=== PATIENT | female | born 1980 | race Caucasian/White ===

== ENCOUNTER 2024-01-31 21:05 | Outpatient (REF) | payer OTHER, BC, SELFPAY ==
[2024-02-06 15:09] LABS: Age Gdln ACOG Testing Note (.); HPV Aptima Negative (Negative); IGP, Aptima HPV, rfx 16/18,45 Note (.)
== END 2024-01-31 21:06 | disposition home or self-care (01) ==
LOC: LAB 21:05
PROVIDERS: PCP Family Medicine; Visit Provider Physician Assistant
DX: Z01.419 Encounter for gynecological examination (general) (routine) without abnormal findings (principal)
CPT/HCPCS: 87624; G0145

== ENCOUNTER 2024-03-25 08:34 | Outpatient (OUT) | payer OTHER, BC, SELFPAY ==
--- NOTE | 2024-03-25 08:39 | MM_ITS ---
Patient Name: ROSANA BOYD MR#: [id number] : 1980 Exam Date: 03/25/2024 Ordering Doctor: DR Sea Gan . RADIOLOGY REPORT PROCEDURE: MM TOMOSYNTHESIS SCREENING BI COMPARISON: MG MAMM SCREEN 3D ALESSANDRA CAD, 01/02/2023. INDICATIONS: Screening Calculator Name NCI Breast Cancer Risk Assessment Tool 5 Year Breast Cancer Risk 0.70% Lifetime Breast Cancer Risk 10.00% Personal Breast Cancer No Personal Ovarian Cancer No Treatments None Family Cancers Uncle-paternal with colon cancer at age 55. LOCATION: [facility] BREAST COMPOSITION: The breasts are heterogeneously dense,which may obscure small masses. FINDINGS: DIAGNOSTIC CATEGORY 1--NEGATIVE. NO CHANGE FROM COMPARISON ASSESSMENT. Scattered benign-appearing lymph nodes are present. RIGHT BREAST: No significant suspicious finding. LEFT BREAST: No significant suspicious finding. RECOMMENDATIONS: ROUTINE MAMMOGRAM AND CLINICAL EVALUATION IN 12 MONTHS. PLEASE NOTE: A NORMAL MAMMOGRAM DOES NOT EXCLUDE THE POSSIBILITY OF BREAST CANCER. A CLINICALLY SUSPICIOUS PALPABLE LUMP SHOULD BE BIOPSIED. Dictated by: Jerson Lopez MD on 03/25/2024 at 09:51 Approved by: Jerson Lopez MD on 03/25/2024 at 09:52
== END 2024-03-25 08:35 | disposition home or self-care (01) ==
LOC: MAMMO 08:35
PROVIDERS: PCP Family Medicine; Visit Provider Obstetrics & Gynecology
DX: Z12.31 Encounter for screening mammogram for malignant neoplasm of breast (principal); Z80.0 Family history of malignant neoplasm of digestive organs
CPT/HCPCS: 77063; 77067

== ENCOUNTER 2025-03-27 08:04 | Outpatient (OUT) | payer OTHER, BC, SELFPAY ==
--- OUTSIDE RECORDS SUMMARY | 2025-03-27 08:09 | XMS_ITS | CCD ---
Author Organization [facility] Care Team Providers Care Applications Instructor Name Role Phone Lois Alexander Unavailable DR NIDIA HOWARD Primary Care Unavailable EDILIA, DR MIKEL Mccullough Consulting Unavailable GRISELDA ., YOSHI Attending Unavailable GRISELDA ., YOSHI Admitting Unavailable GRISELDA ., YOSHI Consulting Unavailable ANITA, DR SINGH Primary Care Unavailable GRISELDA ., YOSHI Admitting Unavailable GRISELDA ., YOSHI Consulting Unavailable GRISELDA Perez, YOSHI Attending Unavailable Marisela Kramer APRN Attending Provider Marisela Kramer Attending Unavailable Marisela Kramer Admitting Unavailable Nidia Howard MD Unavailable Nidia Howard MD Primary Care Provider [phone] Nidia Howard MD Unavailable NIDIA HOWARD Attending Unavailable NATIVIDAD POON Attending Unavailable Marisela Kramer APRN Attending Provider Medications Current Medications Medication Drug Class(es) Dates Sig (Normalized) Sig (Original) atorvastatin 10 mg oral tablet (8 sources) HMG-CoA Reductase Inhibitor Start: 02-01-2024 End: 03-09-2025 take 1 tablet by mouth once daily Atorvastatin 10 mg tablet Active 10 MG PO Daily March 09, 2025 9:32am Start: 02-01-2024 Atorvastatin A ctive MG PO February 01, 2024 12:00am cetirizine hydrochloride 10 mg oral tablet (1 source) Histamine-1 Receptor Antagonist Start: 03-09-2025 take 1 tablet by mouth once daily as needed Cetirizine (Zyrtec) 10 mg tablet Active 10 MG PO Daily as needed March 09, 2025 12:00am cholecalciferol 0.025 mg oral capsule (1 source) Vitamin D Start: 03-09-2025 take 1 capsule by mouth once daily Cholecalciferol (Vitamin D3) 25 mcg (1,000 unit) capsule Active 25 MCG PO Daily March 09, 2025 12:00am fluticasone propionate 0.05 mg/actuat metered dose nasal spray (1 source) Corticosteroid Start: 05-28-2021 take 1 spray(s) nasal route once daily Fluticasone Propionate 50 MCG/ACT 1 spray in each nostril Nasally Once a day for 30 day(s) May, Active phenazopyridine hydrochloride 200 mg delayed release oral tablet (3 sources) Start: 02-13-2025 End: 02-15-2025 take 1 tablet by mouth three times daily as needed for muscle spasms phenazopyridine (Pyridium) 200 MG tablet Indications: Acute cystitis without hematuria Take 1 tablet (200 mg) by mouth 3 (three) times a day as needed for bladder spasms for up to 2 days 6 tablet 02/13/2025 02/15/2025 Active Start: 10-30-2021 take 1 tablet by [facility] every eight hours Pyridium 200 MG 1 tablet after meals Orally Three times a day for 2 day(s) Oct, Active Completed/Discontinued Medications Medication Drug Class(es) Dates Sig (Normalized) Sig (Original) cephalexin 500 mg oral capsule (3 sources) Cephalosporin Antibacterial Start: 12-22-2024 End: 03-09-2025 take 1 capsule by mouth twice daily Cephalexin 500 mg capsule Discontinued 500 MG PO Twice daily 14 7 December 22, 2024 1:00am March 09, 2025 9:32am Start: 10-30-2021 take 1 capsule by [facility] every eight hours Cephalexin 500 MG 1 capsule Orally three times a day for 5 days Oct, Active dextromethorphan hydrobromide 1.5 mg/ml / pyrilamine maleate 1.5 mg/ml oral solution (4 sources) Uncompetitive E-cwkigj-W-aspartate Receptor Antagonist, Sigma-1 Agonist Start: 02-01-2024 End: 05-30-2024 take 1 mL by mouth every eight hours Pyrilamine-Dextromethorphan ([place] Dm) 7.5-7.5 mg/5 mL liquid Discontinued 10 ML PO Every 8 hours 150 5 January 314 12:00am May 30, 2024 4:38pm predniSONE 20 mg oral tablet (7 sources) Start: 05-30-2024 End: 12-22-2024 take 3 tablets by mouth once daily, then take 2 tablets by mouth once daily, then take 1 tablet by mouth once daily Prednisone 20 mg tablet Discontinued 20 MG PO .COMPLEX 24 May 30, 2024 12:00am December 22, 2024 10:43am Take 3 tabs po daily x 4 days, then take 2 tabs po daily x 4 days, then take 1 tab po daily x 4 days. Start: 02-01-2024 End: 05-30-2024 take 1 tablet by mouth twice daily Prednisone 20 mg tablet Discontinued 20 MG PO Twice daily 10 February 01, 2024 12:00am May 30, 2024 4:38pm Problems Active Problems Problem Classification Problem Date Documented Date Episodic/Chronic Allergic reactions (3 sources) Contact dermatitis; Translations: [Unspecified contact dermatitis, unspecified cause] 05-30-2024 Episodic Disorders of lipid metabolism (2 sources) Pure hypercholesterolemia; Translations: [Pure hypercholesterolemia, unspecified] Onset: 05-31-2023 05-31-2023 Chronic Genitourinary symptoms and ill-defined conditions (4 sources) Dysuria; Translations: [Urgency of urination] Onset: 10-30-2021 Resolved: 10-30-2021 Episodic Immunizations and screening for infectious disease (1 source) Encounter for screening for human papillomavirus (HPV); Translations: [ENC SCREENING HUMAN PAPILLOMAVIRUS] Onset: 12-20-2022 Episodic Other congenital anomalies (2 sources) Birthmark; Translations: [Congenital non-neoplastic nevus] Onset: 05-31-2023 05-31-2023 Chronic Other screening for suspected conditions (not mental disorders or infectious disease) (8 sources) Encounter for screening mammogram for malignant neoplasm of breast; Translations: [Encounter for screening for malignant neoplasm of cervix] Onset: 12-19-2022 Episodic Other upper respiratory infections (4 sources) Viral upper respiratory tract infection; Translations: [Acute upper respiratory infection, unspecified] 02-01-2024 Episodic Residual codes; unclassified (1 source) Family history of malignant neoplasm of digestive organs; Translations: [FAM HX MALIG NEOPLASM DIGESTIV ORGN] Onset: 01-05-2023 Episodic Spondylosis; intervertebral disc disorders; other back problems (4 sources) Backache; Translations: [Dorsalgia, unspecified] 12-22-2024 Episodic Superficial injury; contusion (4 sources) Contusion of lower back and pelvis, initial encounter; Translations: [Contusion of left buttock] 12-22-2024 Episodic Urinary tract infections (7 sources) Acute cystitis with hematuria; Translations: [Urinary tract infectious disease] Onset: 10-30-2021 Resolved: 10-30-2021 Episodic Past or Other Problems Problem Classification Problem Date Documented Da te Episodic/Chronic Biliary tract disease (2 sources) Disorder of gallbladder; Translations: [Disease of gallbladder, unspecified] Onset: 05-31-2023 05-31-2023 Episodic Results Test Name Value Interpretation Reference Range Facility No Panel InformationOrdered By: Sonam Moreira on 03-09-2025 Quick Strep (POC) [facility] Urinalysis macro (dipstick) panel (U)on 02-13-2025 Bilirubin, UA 1+ Negative - 4(70) +++ mg/dL [facility] Blood, UA Negative Negative - 50 Lenny/mcL [facility] Clarity, UA Clear [facility] Color, UA Yellow [facility] Glucose, UA Negative Negative - 1999(110) ++++ mg/dL [facility] Interpretation and review of laboratory results Abnormal [facility] Ketones, UA Negative Negative - 160(16) ++++ mg/dL [facility] Leukocytes, UA Moderate Negative - 500+++ Corky/mcL [facility] Nitrite, UA Negative Negative - Positive [facility] pH, UA 6 5 - 9 [facility] Protein, UA Negative Negative - 1999(20) ++++ mg/dL [facility] Spec Grav, UA 1.03 1 - 1.[address] [facility] care Urobilinogen, UA 0.2 0.2 - 12 mg/dL [facility] Urine Cultureon 12-23-2024 Bacteria identified Cx Nom (U) ORGANISM: Proteus mirabilis (O:PROMIR) [place] Count 75,000 Aerobic AZEB Charge ([id number]) ----- SUSCEPTIBILITY ---- ORGANISM: O:PROMIR ANTIBIOTIC INTERPRETATION AZEB Amikacin S <16 Amoxacillin/K Clavulanate S <8 Ampicillin S <8 Ampicillin/Sulbactam S <4 Aztreonam S <4 Cefazolin S <2 Cefepime S <2 Ceftazidime S <1 Ceftazidime/Avibacta m S <4 Ceftolozane/Tazobact am S <2 Ceftriaxone S <1 Cefuroxime S <4 Ciprofloxacin S <0.25 Ertapenem S <0.5 Gentamicin S <2 Levofloxacin S <0.5 Meropenem S <1 Meropenem/Vaborbacta m S <2 Piperacillin/Tazobac zhang S <8 Tobramycin S <2 Trimethoprim/Sulfame thoxazole S <0.5 S = SUSCEPTIBLE I = INTERMEDIATE R = RESISTANT BLANK = DATA NOT AVAILABLE, OR DRUG NOT ADVISABLE OR TESTED R* = RESISTANCE DUE TO EXTENDED SPECTRUM BETA-LACTAMASES ESBL = EXTENDED SPECTRUM BETA-LACTAMASE TFG = THYMIDINE-DEPENDENT STRAIN GUANAKITO = BETA-LACTAMASE POSITIVE IB = INDUCIBLE BETA-LACTAMASE. APPEARS IN PLACE OF 'S' WITH SPECIES KNOWN TO POSSESS INDUCIBLE BETA-LACTAMASES. POTENTIALLY THEY MAY BECOME RESISTANT TO ALL B-LACTAM DRUGS. PERFORMED BY: [place] [id number] PATHOLOGIST BROADCAST DIRECTOR OPERATIONS STEVE KHAN M.D. Normal [facility] Comment on above: Performed By: #### C UU #### [facility] [address] [place] [address] Urine cultureOrdered By: Emili Kramer on 12-23-2024 Bacteria identified Cx Nom (U) Abnormal [facility] - Chemistry and C hemistry - challengeon 12-22-2024 Bilirubin Ql (U) Negative [facility] Glucose (U) [Mass/Vol] Negative [facility] Ketones Ql (U) Negative [facility] pH (U) 8.0 [pH] [facility] Specific gravity (U) [Rel density] 1.015 [facility] - Specimen inform ationon 12-22-2024 Appearance (U) clear [facility] Color (U) LTpink [facility] - Urinalysison Leukocyte esterase Test strip Ql (U) Small [facility] Nitrite Ql (U) Negative [facility] Protein Ql (U) Negative [facility] No Panel Informationon 12-22 Urine Occult Blood Large [facility] Urine Urobilinogen 0.2E.U [facility] MG MAMM SCREEN 3D ALESSANDRA CADon 01-02-2023 MG MAMM SCREEN 3D ALESSANDRA CAD Patient: DARWIN BOYD Exam Date: 01/02/2023 : 1980 Gender:F Ordering : BRENDA VILLALOBOS . Admission #: [id number] Family : Order #: [id number] CLICK HERE TO VIEW EXAM RADIOLOGY REPORT PROCEDURE: MAMMOGRAM SCREENING 3D BILATERAL CAD COMPARISON: None. INDICATIONS: Screening for malignant neoplasm of breast Calculator Name NCI Breast Cancer Risk Assessment Tool 5 Year Breast Cancer Risk 0.60% Lifetime Breast Cancer Risk 10.20% Personal Breast Cancer No Personal Ovarian Cancer No Treatments None Family Cancers Uncle-paternal with colon cancer at age 55. LOCATION: [facility] BREAST COMPOSITION: Heterogeneously dense,which may obscure small masses. FINDINGS: DIAGNOSTIC CATEGORY 1--NEGATIVE. RIGHT BREAST: No significant suspicious finding. LEFT BREAST: No significant suspicious finding. RECOMMENDATIONS: ROUTINE MAMMOGRAM AND CLINICAL EVALUATION IN 12 MONTHS. PLEASE NOTE: A NORMAL MAMMOGRAM DOES NOT EXCLUDE THE POSSIBILITY OF BREAST CANCER. A CLINICALLY SUSPICIOUS PALPABLE LUMP SHOULD BE BIOPSIED. Dictated by: Mikel Santiago M.D. on 01/04/2023 at 12:01 Approved by: Mikel Santiago M.D. on 01/04/2023 at 13:10 Normal [facility] PAP ACOG PANEL 2: 30 to 65on 12-26-2022 . . Normal [facility] Comment on above: Result Comment: Perf ormed at: WB Performed By: #### [id number] #### [facility] [address] [address] [address] Prince Oquendo Age Gdln ACOG Testing 30-65 Normal [facility] Comment on above: Performed By: #### [id number] #### [facility] [address] [place] [address] Dr. Prince Oquendo DIAGNOSIS: Comment Normal [facility] Comment on above: Result Comment: NEGA TIVE FOR INTRAEPITHELIAL LESION OR MALIGNANCY. Performed at: WB Performed By: #### [id number] #### [facility] [address] [place] [address] Dr. Prince Oquendo HPV Aptima Negative Normal Negative [facility] Comment on above: Result Comment: This nucleic acid amplification test detects fourteen high-risk HPV types (16,18,31,33,35,39,45,51,52,56,58,59,66,68) without differentiation. Performed at: =G Performed By: #### [id number] #### [facility] [address] [place] [address] Dr. Prince Oquendo HPV Genotype Reflex Comment Normal [facility] Comment on above: Result Comment: Crit eria not met, HPV Genotype not performed. Performed at: WB Performed By: #### [id number] #### [facility] [address] [place] [address] Dr. Prince Oquendo Methodology: Comment Normal [facility] Comment on above: Result Comment: This liquid based ThinPrep(R) pap test was screened with the use of an image guided system. Performed at: WB Performed By: #### [id number] #### [facility] [address] [place] [address] Dr. Prince Oquendo Note: Comment Normal [facility] Comment on above: Result Comment: The Pap smear is a screening test designed to aid in the detection of premalignant and malignant conditions of the uterine cervix. It is not a diagnostic procedure and should not be used as the sole means of detecting cervical cancer. Both false-positive and false-negative reports do occur. . Performed at: WB Performed By: #### [id number] #### [facility] [address] [place] [address] Dr. Prince Oquendo Performed by: Comment Normal [facility] Comment on above: Result Comment: Truman Núñez, Blown Film Extrusion Operator (ASCP) Performed at: WB Performed By: #### [id number] #### [facility] [address] [address] [address] Prince Oquendo Specimen adequacy: Comment Normal [facility] Comment on above: Result Comment: Sati sfactory for evaluation. Endocervical and/or squamous metaplastic cells (endocervical component) are present. Performed at: WB Performed By: #### [id number] #### [facility] [address] [address] [address] Prince Oquendo Urinalysis - AUTOMATEDon Appearance (U) cloudy [employer] Other Bilirubin Ql (U) Negative [employer] Other Color (U) pink [facility] Other Glucose Ql (U) Negative [employer] Other Hemoglobin Ql (U) large [employer] Other Ketones Ql (U) Negative [employer] Other Leukocyte esterase Test strip Ql (U) moderate [employer] Other Nitrite Ql (U) Negative [employer] Other pH (U) 6.0 [pH] [employer] Other Protein Ql (U) trace [employer] Other Specific gravity (U) [Rel density] 1.010 [employer] Other Urobilinogen (U) [Mass/Vol] 0.2 mg/dL [employer] Other Urinalysis - AUTOMATED No rt [employer] Other Vital Signs Date Time Vital Sign Value Performing Clinician Facility 03-09-2025 09:29-0400 Body height 165.1 cm Marisela Kramer APRN Work Phone: [facility] 03-09-2025 09:29-0400 Body mass index (BMI) [Ratio] 23.4 kg/m2 Marisela Nia [employer] Work Phone: [facility] 03-09-2025 09:29-0400 Body temperature 98.6 [degF] Marisela Nia [employer] Work Phone: [facility] 03-09-2025 09:29-0400 Body weight 63.95 kg Marisela Nia [employer] Work Phone: [facility] 03-09-2025 09:29-0400 Diastolic blood pressure 79 mm[Hg] Marisela Nia [employer] Work Phone: [facility] 03-09-2025 09:29-0400 Heart rate 67 /min Marisela Nia [employer] Work Phone: [facility] 03-09-2025 09:29-0400 Respiratory rate 16 /min Marisela Nia [employer] Work Phone: [facility] 03-09-2025 09:29-0400 SaO2% (BldA) [Mass fraction] 98 % Marisela Nia [employer] Work Phone: [facility] 03-09-2025 09:29-0400 Systolic blood pressure 114 mm[Hg] Marisela Nia [employer] Work Phone: [facility] 02-13-2025 14:08-0400 Body height 163.8 cm Natividad Hemmer PA Work Phone: [facility] 02-13-2025 14:08-0400 Body mass index (BMI) [Ratio] 24.81 kg/m2 Natividad Hemmer PA Work Phone: [facility] 02-13-2025 14:08-0400 Body temperature 98.8 [degF] Natividad Hemmer PA Work Phone: [facility] 02-13-2025 14:08-0400 Body weight 66.59 kg Natividad Hemmer PA Work Phone: [facility] 02-13-2025 14:08-0400 Diastolic blood pressure 80 mm[Hg] Natividad Hemmer PA Work Phone: [facility] 02-13-2025 14:08-0400 Heart rate 78 /min Natividad Hemmer PA Work Phone: [facility] 02-13-2025 14:08-0400 Respiratory rate 16 /min Natividad Hemmer PA Work Phone: [facility] 02-13-2025 14:08-0400 SaO2% (BldA) [Mass fraction] 98 % Natividad Hemmer PA Work Phone: [facility] 02-13-2025 14:08-0400 Systolic blood pressure 122 mm[Hg] Natividad Hemmer PA Work Phone: [facility] 12-22-2024 09:41-0500 Body height 165.1 cm [facility] 12-22-2024 09:41-0500 Body mass index (BMI) [Ratio] 24.5 kg/m2 [facility] 12-22-2024 09:41-0500 Body temperature 98.1 [degF] [facility] 12-22-2024 09:41-0500 Body weight 66.73 kg [facility] 12-22-2024 09:41-0500 Diastolic blood pressure 79 mm[Hg] [facility] 12-22-2024 09:41-0500 Heart rate 63 /min [facility] 12-22-2024 09:41-0500 SaO2% (BldA) [Mass fraction] 99 % [facility] 12-22-2024 09:41-0500 Systolic blood pressure 109 mm[Hg] [facility] 05-30-2024 16:42-0400 Body height 165.1 cm [facility] 05-30-2024 16:42-0400 Body mass index (BMI) [Ratio] 23.8 kg/m2 [facility] 05-30-2024 16:42-0400 Body temperature 98.3 [degF] [facility] 05-30-2024 16:42-0400 Body weight 64.94 kg [facility] 05-30-2024 16:42-0400 Heart rate 64 /min [facility] 05-30-2024 16:42-0400 Respiratory rate 18 /min [facility] 05-30-2024 16:42-0400 SaO2% (BldA) [Mass fraction] 98 % [facility] 02-01-2024 16:56-0400 Body height 165.1 cm [facility] 02-01-2024 16:56-0400 Body mass index (BMI) [Ratio] 23.3 kg/m2 [facility] 02-01-2024 16:56-0400 Body temperature 97.9 [degF] [facility] 02-01-2024 16:56-0400 Body weight 63.5 kg [facility] 02-01-2024 16:56-0400 Heart rate 73 /min [facility] 02-01-2024 16:56-0400 Respiratory rate 16 /min [facility] 02-01-2024 16:56-0400 SaO2% (BldA) [Mass fraction] 97 % [facility] 11-18-2023 09:10-0500 Body height 165.1 cm [facility] 11-18-2023 09:10-0500 Body weight 63.14 kg [facility] 11-18-2023 09:10-0500 Diastolic blood pressure 83 mm[Hg] [facility] 11-18-2023 09:10-0500 Systolic blood pressure 122 mm[Hg] [facility] 10-30-2021 13:30-0500 Body height 165.1 cm Lois Alexander Other [employer] Other 10-30-2021 13:30-0500 Body mass index (BMI) [Ratio] 22.3 kg/m2 Lois Alexander Other [employer] Other 10-30-2021 13:30-0500 Body temperature 97.4 [degF] Lois Alexander Other [employer] Other 10-30-2021 13:30-0500 Body weight 60.78 kg Lois Alexander Other [employer] Other 10-30-2021 13:30-0500 Diastolic blood pressure 88 mm[Hg] Lois Alexander Other [employer] Other 10-30-2021 13:30-0500 Respiratory rate 18 /min Lois Alexander Other [employer] Other 10-30-2021 13:30-0500 SaO2% (BldA) [Mass fraction] 100 % Lois Alexander Other [employer] Other 10-30-2021 13:30-0500 Systolic blood pressure 128 mm[Hg] Lois Alexander Other [employer] Other Encounters Encounter Date Encounter Type Care Provider Facility Start: 03-09-2025 End: 03-09-2025 ambulatory Marisela Kramer APRN Work Phone: [facility] Work Phone: Start: 03-09-2025 End: 03-09-2025 Patient encounter procedure Mariselaeliz Kramer [employer] Work Phone: [facility] [place] Work Phone: Start: 02-13-2025 End: 02-13-2025 Office outpatient visit 25 minutes Natividad GUTIERREZ Work Phone: [facility] Comment on above: Acute cystitis witho ut hematuria (Primary Dx); Urine frequency Start: 02-13-2025 End: 02-13-2025 ambulatory NATIVIDAD POON Not Available Start: 12-23-2024 End: 12-23-2024 ambulatory Marisela Kramer [facility] Work Phone: Start: 12-23-2024 End: 12-23-2024 Departed Referred Marisela Kramer [employer] Work Phone: [facility] [place] Work Phone: Start: 12-22-2024 End: 12-22-2024 ambulatory [facility] Work Phone: Start: 12-22-2024 End: 12-22-2024 Patient encounter procedure [facility] [place] Work Phone: Start: 06-13-2024 Assay of hemosiderin , annabelle Henson Hemmer PA Work Phone: [facility] Start: 06-13-2024 End: 06-13-2024 ambulatory NIDIA HOWARD Not Available Start: 05-30-2024 End: 05-30-2024 ambulatory [facility] Work Phone: Start: 05-30-2024 End: 05-30-2024 Patient encounter procedure [facility] [place] Work Phone: Start: 02-01-2024 End: 02-01-2024 ambulatory [facility] Work Phone: Start: 02-01-2024 End: 02-01-2024 Patient encounter procedure [facility] [place] Work Phone: Start: 11-18-2023 End: 11-18-2023 Patient encounter procedure [facility] [place] Work Phone: Start: 01-02-2023 End: 01-03-[address] NIDIA HOWARD Facility:[facility] Start: 12-19-2022 End: 12-19-[address] NIDIA HOWARD Facility:[facility] Start: 10-30-2021 End: 10-30-2021 ambulatory Lois Alexander Other [employer] Other Start: 10-30-2021 Office outpatient visit 15 minutes Lois Alexander [facility] [place] Procedures Date Procedure Procedure Detail Performing Clinician Start: 03-09-2025 Quick Strep (POC) Romina Kramer [employer] Work Phone: Start: 02-13-2025 Urnls dip stick/tabl et rgnt non-auto w/o micrscp Natividad GUTIERREZ Work Phone: Start: 12-23-2024 Urine culture Marisela Gr ob [employer] Work Phone: Start: 03-25-2024 Mammography Natividad bains PA Work Phone: Start: 12-19-2022 Microscopic observat ion [Identifier] in Cervix by Cyto stain Natividad GUTIERREZ Work Phone: Plan of Treatment Date Care Activity Detail Author Start: 12-19-2027 Screening for malign ant neoplasm of cervix [facility] Start: 03-25-2025 Screening for malign ant neoplasm of breast Mammogram [facility] Start: 02-13-2025 End: 02-13-2026 URINARY TRACT INFECTION (HTRX) URINARY TRACT INFECTION (HTRX) Lab Routine Acute cystitis without hematuria Expected: 02/13/2025 (Approximate), Expires: 02/13/2026 [facility] Work Phone: Comment on above: Expected: 02/13/2025 (Approximate), Expires: 02/13/2026 Start: 12-23-2024 Bacteria identified in Urine by Culture Urine Culture [facility] Start: 12-23-2024 Urine culture [facility] Urine culture [facility] Immunizations Immunization Date Immunization Notes Care Provider Lizzy cui 08-29-2024 Seasonal, trivalent, recombinant, injectable influenza vaccine, preservative free Natividad GUTIERREZ Work Phone: [facility] 08-25-2021 Seasonal, quadrivale nt, recombinant, injectable influenza vaccine, preservative free Natividad GUTIERREZ Work Phone: [facility] 09-01-2020 Seasonal, quadrivale nt, recombinant, injectable influenza vaccine, preservative free Natividad Hemhumza GUTIERREZ Work Phone: [facility] 08-28-2019 influenza, injectabl e, quadrivalent, contains preservative Natividad Hemmer PA Work Phone: [facility] 09-15-2015 seasonal influenza, intradermal, preservative free Natividad Hemmer BRENDA Work Phone: [facility] [facility] Payers Date Payer Category Payer Self-pay [id number] [address] [facility] er [id number] 2024 Unknown [id number] 2021 Private Health Insurance [employer] [id number] 1982 Unknown [id number] 1982 Unknown [id number] 1982 Unknown [id number] 1982 Unknown [id number] [id number] 1959 Unknown [id number] 1959 Unknown [id number] Unknown [id number] Unknown [place] [id number] Unknown [id number] Social History Date Type Detail Facility Unknown if ever smoked [facility] Start: 02-12-2025 End: 02-13-2025 Sex Assigned At [facility] Start: 11-23-2019 End: 03-09-2025 Tobacco smoking status SDIS Never smoked tobacco (finding) [facility] Start: 1980 Sex Assigned At Female [facility] Start: 12-22-2024 End: 03-09-2025 Sex Female (finding) [facility] Start: 05-31-2023 Tobacco use and exposure Smokeless tobacco non-user [facility] Start: 02-13-2025 Alcoholic beverage intake Lifetime non-drinker (finding) [facility] Start: 02-12-2025 End: 02-13-2025 History of Social function [facility] How often do you nee d to have someone help you when you read instructions, pamphlets, or other written material from your doctor or pharmacy [SILS] Never [facility] Do you belong to any clubs or organizations such as mormon groups, unions, fraternal or athletic groups, or school groups? Yes [facility] Are you now , , , , never or living with a partner? [facility] How often to you hav e a drink containing alcohol? 2-4 times a month [facility] How many standard dr inks containing alcohol do you have on a typical day? 3 or 4 [facility] How often do you hav e 6 or more drinks on 1 occasion? Less than monthly [facility] Do you feel stress - tense, restless, nervous, or anxious, or unable to sleep at night because your mind is troubled all the time - these days [OSQ] Only a little [facility] (I/We) worried wheth er (my/our) food would run out before (I/we) got money to buy more. Never true [facility] In the past 12 month s, was there a time when you were not able to pay the mortgage or rent on time? No [facility] Start: 01-29-2024 Alcohol Comment Caffeine : yes, chocolate [facility] Start: 1980 Sex assigned at Not on file [facility] History of Present illness Narrative 02-13-2025 BRENDA Del Rio - 02/13/2025 2:00 PM EDT Note Date & Type Note Facility 02-13-2025 History of Presen t illness Narrative Images from the original note were not included. Subjective Patient ID: Darwin Boyd is a 45 y.o. female who presents for UTI. Darwin is present today for evaluation of UTI. She was seen on 12/23/24 [facility] UTI rx'd Cephalexin 500 mg BID for 7 days. She still has frequency and just a little burning. She feels the ATB she was given at Urgent care did not fully make her UTI get better. Does not drink enough water, especially on the weekends. Drinks 40-50 ounces of water on a good day. Current Outpatient Medications on File Prior to Visit Medication Sig Dispense Refill atorvastatin (Lipitor) 10 MG tablet Take 1 tablet (10 mg) by mouth Daily 100 tablet 3 No current facility-administered medications on file prior to visit. I have reviewed and reconciled the history and medication list with the patient today. No Known Allergies Social History Tobacco Use Smoking status: Never Smokeless tobacco: Never Vaping Use Vaping status: Never Used Substance Use Topics Alcohol use: Never Comment: Caffeine : yes, chocolate Drug use: Never Family History Problem Relation Name Age of Onset Hypertension Mother Heart disease Mother Heart attack Mother Heart disease Maternal Grandmother Hypertension Maternal Grandfather Heart disease Maternal Grandfather Melanoma Neg Hx Past Medical History: Diagnosis Date Allergic BMI 23.0-23.9, adult Cellulitis Encounter for gynecological examination (general) (routine) without abnormal findings Past Surgical History: Procedure Laterality Date HERNIA REPAIR 1986 HERNIA REPAIR 2009 Visit Vitals BP 122/80 Pulse 78 Temp 98.8 F Resp 16 Ht 5' 4.5 Wt 146 lb 12.8 oz SpO2 98% BMI 24.81 kg/m OB Status Having periods Smoking Status Never BSA 1.74 m Review of Systems Constitutional: Negative for chills, fatigue and fever. Respiratory: Negative for cough, shortness of breath and wheezing. Cardiovascular: Negative for chest pain, palpitations and leg swelling. Gastrointestinal: Negative for abdominal pain, constipation, diarrhea, nausea and vomiting. Genitourinary: Positive for dysuria and frequency. Skin: Negative for rash. Objective Physical Exam Constitutional: General: She is not in acute distress. Appearance: Normal appearance. She is well-developed. HENT: Head: Normocephalic and atraumatic. Eyes: General: No scleral icterus. Conjunctiva/sclera: Conjunctivae normal. Neck: Thyroid: No thyromegaly. Cardiovascular: Rate and Rhythm: Normal rate and regular rhythm. Heart sounds: Normal heart sounds. No murmur heard. Pulmonary: Effort: Pulmonary effort is normal. No respiratory distress. Breath sounds: Normal breath sounds. No wheezing, rhonchi or rales. Abdominal: General: There is no distension. Palpations: Abdomen is soft. Tenderness: There is no abdominal tenderness. There is no right CVA tenderness or left CVA tenderness. Skin: General: Skin is warm and dry. Neurological: General: No focal deficit present. Mental Status: She is alert and oriented to person, place, and time. Psychiatric: Mood and Affect: Mood normal. Behavior: Behavior normal. Office Visit on 02/13/2025 Component Date Value Ref Range Status Color, UA 02/13/2025 Yellow Final Clarity, UA 02/13/2025 Clear Final Glucose, UA 02/13/2025 Negative Negative - 1999(110) ++++ mg/dL Final Bilirubin, UA 02/13/2025 1+ Negative - 4(70) +++ mg/dL Final Ketones, UA 02/13/2025 Negative Negative - 160(16) ++++ mg/dL Final Spec Grav, UA 02/13/2025 1.030 1 - 1.03 Final Blood, UA 02/13/2025 Negative Negative - 50 Lenny/mcL Final pH, UA 02/13/2025 6.0 5 - 9 Final Protein, UA 02/13/2025 Negative Negative - 2000(20) ++++ mg/dL Final Urobilinogen, UA 02/13/2025 0.2 0.2 - 12 mg/dL Final Leukocytes, UA 02/13/2025 Moderate Negative - 500+++ Corky/mcL Final Nitrite, UA 02/13/2025 Negative Negative - Positive Final Assessment/Plan Diagnoses and all orders for this visit: Acute cystitis without hematuria - URINARY TRACT INFECTION (HTRX); Future - phenazopyridine (Pyridium) 200 MG tablet; Take 1 tablet (200 mg) by mouth 3 (three) times a day as needed for bladder spasms for up to 2 days Provided patient with prescription for Pyridium for symptomatic relief. Advised of potential side effects including discoloration of urine. Increase water intake, get plenty of rest. Advised patient that the urine will be sent out for culture. May need to add antibiotic based on the culture results. Cranberry juice ok. Avoid bath tubs and hot tubs or use the restroom afterwards, always wipe front to back, avoid fragrance soaps in that area, urinate after intercourse if sexually active. If patient develops any N/V, fever/chills, or symptoms dramatically increase, the patient is to go to the ER. Otherwise follow up at our office if no improvement in one week. Urine frequency - POCT Urinalysis dipstick Reviewed abnormal lab results with patient today. 12/22/2024 [facility] note and culture results reviewed prior to today's office visit. Follow up if symptoms worsen or fail to improve. documented in this encounter [facility] Evaluation note 12-22-2024 Note Date & Type Note Facility 12-22-2024 Evaluation note Diagnosis Onset Date Resolution Back pain acute December 22, 2024 9:08am Contusion of left buttock acute December 22 9:08am UTI (urinary tract infection) acute December 22 9:08am [facility] Work Phone: Evaluation note 10-30-2021 Note Date & Type Note Facility 10-30-2021 Evaluation note Encounter Date Diagnosis Assessment Notes Oct, Dysuria (ICD-10 - R30.0) Oct, Acute cystitis with hematuria (ICD-10 - N30.01) Take medication as directed. Urine analysis shows abnormalities today in office. Urine culture will be sent to lab. Will call with results if resistance present to antibiotic. Increase fluid intake. Follow hygiene guidelines such as wiping front to back, avoid using perfumed lotions, bath beads, bubble bath. Prevention tips inlcude urinating after sexual intercourse. Follow up with primary care provider or windows server engineer if no improvement of symptoms. [facility] Other Evaluation note Note Date & Type Note Facility Evaluation note No assessment information availa [facility] Work Phone: Evaluation note Note Date & Type Note Facility Evaluation note Diagnosis Encounter for well adult exam without abnormal findings- Primary Routine general medical examination at health care facility Routine general medical examination at a health care facility Pure hypercholesterolemia (CMS/HCC) Pure hypercholesterolemia Acute cystitis without hematuria- Primary Urine frequency documented in this encounter [facility] History general Narrative - Reported Note Date & Type Note Facility History general Narrative - Reported Type Surgical History hernia [facility] Other Summary Purpose Family History Relationship Condition Age at Onset Recorded Date/T edel Not Specified Hypertension Unknown Heart disease Unknown Relationship Condition Age at Onset Recorded Date/T edel mother Hypertension Unknown Heart disease Unknown Advance Directives Advance Directive Response Recorded Date/ Time Advance Directives No October 1:12pm Advance Directive Response Recorded Date/ Time Advance Directives No October 12:12pm Chief Complaint and Reason for Visit Chief Complaint Congestion, Sore Thr oat, Headaches Sore throat, cough, congestion, headache Chief Complaint Rash Chief Complaint Admit Date poss UTI December 22, 2024 9 :08am Chief Complaint Admit Date poss UTI December 22, 2024 9 :08am Urinary urgency R39.15 December 23 9:47am Reason for Visit Admit Date Back pain December 22, 2024 9 :08am Contusion of left buttock December 22, 2024 9:08am UTI (urinary tract infection) December 222024 9:08am Chief Complaint Admit Date poss UTI December 22, 2024 9 :08am Urinary urgency R39.15 December 23 9:47am Sore throat March 09, 2025 9:2 7am Additional Source Comments REASON FOR VISIT (unrecogniz ed section and content) POSS UTI INFORMATION SOURCE (unrecogn ized section and content) DATE CREATED AUTHOR 01/06/2023 [facility] DATE CREATED AUTHOR AUTHOR'S ORGANIZ ATION 12/27/2024 [facility] DATE CREATED AUTHOR AUTHOR'S ORGANIZ ATION 02/16/2025 [facility] EPIC Care Teams (unrecognized sec tion and content) Team Status: Active Member Role Status Dates Nidia Howard MD Primary Care Provider Active Team Status: Inactive Member Role Status Dates ISRA Mckinney Attending Provider Active S tart: November 18, 2023 End: November 18, 2023 Team Status: Inactive Member Role Status Dates Brina Arias APRN Attending Provider Active Start: February 01, 2024 End: February 01, 2024 Nidia Howard MD Primary Care Provider Active S tart: February 01, 2024 End: February 01, 2024 Team Status: Inactive Member Role Status Dates Nidia Howard MD Primary Care Provider Active S tart: May 30, 2024 End: May 30, 2024 Sonam Moreira APRN Attending Provider Active Start: May 30, 2024 End: May 30, 2024 Team Status: Inactive Member Role Status Dates Nidia Howard MD Primary Care Provider Active S tart: December 22, 2024 End: December 22, 2024 Marisela Kramer APRN Attending Provider Active S tart: December 22, 2024 End: December 22, 2024 Team Status: Inactive Member Role Status Dates Marisela Kramer APRN Attending Provider Active S tart: December 23, 2024 End: December 23, 2024 Applications Instructor Relationship Specialty Start Date End Date Nidia Howard MD [address] [facility] [address] [place] [address] PCP - [facility] 08/13/16 11/12/99 Nidia Howard MD [address] [place] [facility] [address] [place] [address] PCP - General Family Medicine 06/12/23 Nidia Howard MD [address] [facility] [address] [place] [address] PCP - [employer] 11/13/24 Team Status: Inactive Member Role Status Dates Sonam Moreira APRN Attending Provider Active Start: March 09, 2025 End: March 09, 2025 Nidia Howard MD Primary Care Provider Active S tart: March 09, 2025 End: March 09, 2025 Goals (unrecognized section and content) Goals may be documented in a n alternate section FOR RECORDS PERTAINING TO PATIENTS WHO ARE OR HAVE BEEN ENROLLED IN A CHEMICAL DEPENDENCY/SUBSTANCEABUSE PROGRAM, SOME INFORMATION MAY BE OMITTED. This clinical summary was aggregated from multiple sources. Caution should be exercised in using it in the provision of clinical care. This summary normalizes information from multiple sources, and as a consequence, information in this document may materially change the coding, format and clinical context of patient data. In addition, data may be omitted in some cases. CLINICAL DECISIONS SHOULD BE BASED ON THE PRIMARY CLINICAL RECORDS. [employer] provides no warranty or guarantee of the accuracy or completeness of information in this document.
--- NOTE | 2025-03-27 08:40 | MM_ITS ---
Patient Name: ROSANA BOYD MR#: [id number] : 1980 Exam Date: 03/27/2025 Ordering Doctor: DR NAVEEN ARZATE . RADIOLOGY REPORT PROCEDURE: MM TOMOSYNTHESIS SCREENING BI COMPARISON: MM TOMOSYNTHESIS SCREENING BI, 03/25/2024. MG MAMM SCREEN 3D ALESSANDRA CAD, 01/02/2023. INDICATIONS: Screening Calculator Name NCI Breast Cancer Risk Assessment Tool 5 Year Breast Cancer Risk 0.70% Lifetime Breast Cancer Risk 9.90% Personal Breast Cancer No Personal Ovarian Cancer No Treatments None Family Cancers Uncle-paternal with colon cancer at age 55. LOCATION: [facility] BREAST COMPOSITION: The breasts are heterogeneously dense,which may obscure small masses. FINDINGS: RIGHT BREAST: No significant suspicious finding. LEFT BREAST: No significant suspicious finding. kkk DIAGNOSTIC CATEGORY 1--NEGATIVE. RECOMMENDATIONS: ROUTINE MAMMOGRAM AND CLINICAL EVALUATION IN 12 MONTHS. PLEASE NOTE: A NORMAL MAMMOGRAM DOES NOT EXCLUDE THE POSSIBILITY OF BREAST CANCER. A CLINICALLY SUSPICIOUS PALPABLE LUMP SHOULD BE BIOPSIED. Dictated by: Johnathon Finnegan DO on 03/27/2025 at 09:28 Approved by: Johnathon Finnegan DO on 03/27/2025 at 09:40
== END 2025-03-27 08:05 | disposition home or self-care (01) ==
LOC: MAMMO 08:07
PROVIDERS: PCP Family Medicine; Visit Provider Obstetrics & Gynecology
DX: Z12.31 Encounter for screening mammogram for malignant neoplasm of breast (principal); Z80.0 Family history of malignant neoplasm of digestive organs
CPT/HCPCS: 77063; 77067

== ENCOUNTER 2025-04-22 12:13 | Outpatient (REF) | payer OTHER, BC, SELFPAY ==
[2025-04-24 17:08] LABS: Age Gdln ACOG Testing Note (.); HPV Aptima Negative (Negative); IGP, Aptima HPV, rfx 16/18,45 Note (.)
== END 2025-04-22 12:14 | disposition home or self-care (01) ==
LOC: LAB 12:13
PROVIDERS: PCP Family Medicine; Visit Provider Physician Assistant
DX: Z01.419 Encounter for gynecological examination (general) (routine) without abnormal findings (principal)
CPT/HCPCS: 87624; 88175